=== PATIENT | female | born 1995 | race Caucasian/White ===

== ENCOUNTER 2021-01-23 18:36 | Emergency (ER) | payer BC, OTHER, SELFPAY ==
[2021-01-23] MEDS ORDERED: Ketorolac Tromethamine 30 MG/ML VIAL ONE (18:59)
== END 2021-01-23 21:05 | disposition home or self-care (01) ==
LOC: NAV ERS 18:36
DX: M25.512 Pain in left shoulder (principal); M25.511 Pain in right shoulder; M54.2 Cervicalgia; I10 Essential (primary) hypertension; F43.9 Reaction to severe stress, unspecified; Y04.2XXA Assault by strike against or bumped into by another person, initial encounter
CPT/HCPCS: 70450; 71045; 72125; 96374; J1885